=== PATIENT | male | born 1950 | race Caucasian/White ===

== ENCOUNTER 2019-09-19 10:51 | Emergency (ER) | payer MEDICARE, SELFPAY ==
[2019-09-19] VITALS (9 sets, daily range): BP systolic 118–146; BP diastolic 60–82; PULSE 59–79; RESP 12–23; TEMP 35.9; O2SAT 96–100
--- NOTE | ~2019-09-19 | CT_ITS ---
EXAMINATION: CT brain wo con DATE: 09/19/2019 11:40 INDICATION: Headache and altered mental status TECHNIQUE: Computed tomography (CT) of the head was performed without intravenous contrast. Sagittal and coronal reconstructions were performed. The mA was adjusted according to patient size. Iterative reconstruction technique was employed. The dose-length product was 605.33 mGy-cm. COMPARISON: None FINDINGS: There are multiple scattered small intra-axial masses throughout the brain with surrounding regions o f vasogenic edema in the white matter scattered throughout the bilateral cerebral and cerebellar esteban spheres. The largest lesion is likely in the right cerebellar hemisphere however the margins are diff icult to differentiate from the surrounding parenchyma. This does result in significant local mass ef fect with distortion leftward deviation of the fourth ventricle. There is relative dilation of the la teral and third ventricles when compared with the sulci suggesting developing obstructing hydrocephal us. The largest clearly defined lesion measures approximately 1.7 cm in the left frontal lobe with ce ntral low-attenuation suggesting cavitation/central necrosis. There are small calcifications associat ed with a few of the lesions. There is an additional 11 mm lesion in the anterior left frontal lobe w hich projects into the lumen of the anterior horn of the left lateral ventricle. No evident intracran ial hemorrhage or acute infarction. The bilateral orbits are normal. Mucus versus mucous retention cy st in the posterior right sphenoid sinus. Mastoid air cells and middle ear cavities are clear. Intrac ranial calcified cerebral atherosclerosis is noted. IMPRESSION: 1. Multiple scattered brain lesions with surrounding vasogenic edema concerning for metastatic diseas e. There is mass effect from a lesion in the right cerebellar hemisphere which compresses the fourth ventricle with resultant dilation of the lateral and third ventricles when compared with the sulci de jesus ggesting secondary hydrocephalus. Dr. Beltran discussed these findings with Dr. Paredes at 11:42 AM. Recommend urgent neurosurgical consultation and when clinically appropriate would recommend further evaluation with pre and postcontrast MRI. Reviewed, dictated and finalized at location A. IMPRESSION: 1. Multiple scattered brain lesions with surrounding vasogenic edema concerning for metastatic disease. There is mass effect from a lesion in the right cerebe llar hemisphere which compresses the fourth ventricle with resultant dilation o f the lateral and third ventricles when compared with the sulci suggesting seco ndary hydrocephalus. Dr. Beltran discussed these findings with Dr. Paredes at 11:42 AM. Recommend urgent neurosurgical consultation and when clinically appro priate would recommend further evaluation with pre and postcontrast MRI.
--- NOTE | ~2019-09-19 | XR_ITS ---
EXAMINATION: XR chest 1V DATE: 09/19/2019 11:41 INDICATION: Cough TECHNIQUE: frontal view of the chest was obtained. COMPARISON: None FINDINGS: 4.3 cm mass in the lateral left midlung zone as well as enlargement of the left hilum suggestive of p rimary bronchogenic carcinoma with hilar metastatic lymphadenopathy. Symmetric small nodular opacitie s projecting along the inferior margin of the bilateral anterior sixth ribs most likely represent nip ple shadows. No other airspace opacities, pulmonary edema, pleural effusion or pneumothorax.. Heart s ize is normal. Anterior spinal fusion procedure in the mid to lower cervical spine with a pair of ant erior plate and screw fixations. IMPRESSION: 1. 4.3 cm mass in the left lung with enlargement of the left hilum concerning for primary bronchogeni c carcinoma with hilar metastatic lymphadenopathy. Given the evidence of likely metastatic disease in the brain would recommend further evaluation with postcontrast CT of the chest, abdomen and pelvis w hen clinically appropriate. Reviewed, dictated and finalized at location A. IMPRESSION: 1. 4.3 cm mass in the left lung with enlargement of the left hilum concerning f or primary bronchogenic carcinoma with hilar metastatic lymphadenopathy. Given the evidence of likely metastatic disease in the brain would recommend further evaluation with postcontrast CT of the chest, abdomen and pelvis when clinicall y appropriate.
--- NOTE | 2019-09-19 11:07 | ECG_ITS ---
Measurements Intervals Harper Rate: 70 P: 73 CT: 145 QRS: 62 QRSD: 101 T: 64 QT: 375 QTc: 407 Interpretive Statements SINUS RHYTHM NORMAL ECG Electronically Signed On 09-19-2019 19:32:02 CDT by Ede August D.O.
--- NOTE | 2019-09-19 11:34 | ED.GENADULT ---
HPI - General Adult General Chief complaint: Headache Stated complaint: HEADACHE Time Seen by Provider: 09/19/19 11:05 History of Present Illness HPI narrative: Patient is a 61-year-old male who presents the ER with several issues. Main issue is confusion ongoing for last week. He has trouble to start some finding some of his words. He currently thinks it is November 2019. He called his sister yesterday to talk about an urgent care visit he had gone to. Cannot verbalize what kind of doctor had been to and it took a while to get through the details. Additionally his handwriting is changed from being small and neat to being much larger and shaky. Sister is concerned about his fine motor movements. Patient has been having some instability with walking as well. Also patient reports she has been having posterior headache that has become more throbbing globally. All this is been ongoing for the last 7 to 10 days. No trauma that he reports. No weight loss. Patient was treated for hepatitis C 6 months ago. He quit drinking alcohol when the symptoms started. Prior to this he been drinking 1 pint a day. Related Data Allergies Allergy/AdvReac Type Severity Reaction Status Date / Time No Known Allergies Allergy Unverified 09/19/19 11:06 Review of Systems Review of Systems: ROS unobtainable: Yes unobtainable due to mental status PMFSH Past Medical History Medical History (Updated 09/19/19 @ 14:49 by Evert Paredes MD) Hepatitis C HLD (hyperlipidemia) Hypertension Surgical History Surgical History (Updated 09/19/19 @ 11:36 by Evert Paredes MD) No pertinent past surgical history Social History Social History Smoking status: Heavy tobacco smoker Alcohol intake: current Gender identity (if verbalized by the patient): Male Exam Narrative: Exam Narrative: GENERAL: Well-appearing, well-nourished, and in no acute distress. HEAD: Normocephalic, atraumatic. EYES: PERRL and EOMI. ENT: Mucous membranes moist. CHEST: Rhonchi that clears with coughing. No respiratory distress. HEART: Regular rate and rhythm. Normal peripheral pulses. ABDOMEN: Soft, nontender, nondistended. EXTREMITIES: Normal range of motion. No edema. NEURO: Cranial nerves II through XII intact. No upper or lower extremity drift. Patient is little shaky when performing [id number] testing and when performing rapid alternating movements of the upper extremities. Alert and oriented x2-3. PSYCH: Normal mood and affect. Course Course Emergency Course: I have discussed case with neurosurgery at [facility] as well as GI and the medicine service. Dr. Cartagena with medicine service will accept the patient. Neurosurgery recommended 10 mg of Decadron x1 and then 4 mg of Decadron every 6 hours. Patient also received one-time dose of Keppra. Patient family aware of diagnosis and treatment plan. No additional questions at this time. Vital Signs Vital signs: Vital Signs Temperature 96.7 F L 09/19/19 10:58 Pulse Rate 73 09/19/19 10:58 Respiratory Rate 20 09/19/19 10:58 Blood Pressure 136/60 09/19/19 10:58 Pulse Oximetry 96 09/19/19 10:58 Temperature 96.7 F L 09/19/19 10:58 Pulse Rate 59 L 09/19/19 14:01 Respiratory Rate 13 09/19/19 14:01 Blood Pressure 118/72 09/19/19 14:01 Pulse Oximetry 96 09/19/19 13:46 Medical Decision Making Vital Signs Vital Signs: Vital Signs Temperature 96.7 F L 09/19/19 10:58 Pulse Rate 73 09/19/19 10:58 Respiratory Rate 20 09/19/19 10:58 Blood Pressure 136/60 09/19/19 10:58 Pulse Oximetry 96 09/19/19 10:58 Temperature 96.7 F L 09/19/19 10:58 Pulse Rate 59 L 09/19/19 14:01 Respiratory Rate 13 09/19/19 14:01 Blood Pressure 118/72 09/19/19 14:01 Pulse Oximetry 96 09/19/19 13:46 Lab Data Result diagrams: 09/19/19 12:20 09/19/19 12:20 Labs: Lab Results
--- NOTE | 2019-09-19 12:09 | PC.NURSE ---
Pt unable to urinate at this time
[2019-09-19 12:39] LABS: Basophils Percent Auto 0.5 % (0.2-1.2); Eosinophils Absolute Auto 0.1 K/mm3 (0-0.3); Eosinophils Percent Auto 1.6 % (0-4.4); Hematocrit 44.1 % (42.0-52.0); Hemoglobin 15.6 g/dL (14.0-18.0); Immature Granulocyte Absolute 0.02 K/mm3 (0.00-0.031); Immature Granulocyte Percent A 0.2 % (0-0.5); Mean Corpuscular HGB Conc 35.4 g/dl (32-36); Mean Corpuscular Hemoglobin 33.8 pg (26-34); Mean Corpuscular Volume 95.7 fl (80-100); Mean Platelet Volume 12.6 fl (7.4-10.4); Monocytes Absolute Auto 0.5 K/mm3 (0.1-0.6); Neutrophils Absolute Auto 6.1 K/mm3 (1.3-6.7); Neutrophils Percent Auto 76.7 % (45.5-73.1); Platelet Count Result 157 k/mm3 (150-375); Red Blood Count 4.61 M/mm3 (4.6-6.20); Red Cell Distribution Width 11.7 % (11.5-14.5)
[2019-09-19 12:52] LABS: Partial Thromboplastin Time 28.2 SECONDS (22.3-36.8)
[2019-09-19 12:53] LABS: Alanine Aminotransferase 42 U/L (4-50); Albumin Level 4.7 g/dL (3.5-5.1); Alkaline Phosphatase 106 U/L (38-126); Anion Gap 10 mmol/L (8-16); Aspartate Amino Transferase 40 U/L (17-59); Bilirubin,Total 0.5 mg/dL (0.2-1.3); Blood Urea Nitrogen 16 mg/dL (9-20); Calcium 9.4 mg/dL (8.4-10.2); Carbon Dioxide 27 mmol/L (22-30); Chloride 101 mmol/L (98-107); Estimated CRCL calculation 64 ml/min; Estimated Glomerular Filt Rate > 60; Glucose 110 mg/dL (75-110); Potassium 3.8 mmol/L (3.4-5.0); Sodium 138 mmol/L (137-145)
[2019-09-19 12:57] LABS: Prothrombin Time 13.2 Seconds (11.1-14.7)
[2019-09-19] MEDS: levETIRAcetam 1000MG/NACL100ML 1,000 MG/100 ML BAG 400 MG IVPB (13:23)
--- NOTE | 2019-09-19 14:09 | PC.NURSE ---
PT STATES THAT HE IS UNABLE TO GIVE URINE SAMPLE AT THIS TIME. RN NOTIFIED.
--- NOTE | 2019-09-19 17:51 | PC.NURSE ---
Estimated ETA 183
== END 2019-09-19 18:12 | disposition short-term general hospital (02) ==
PROVIDERS: Emergency Provider Emergency Medicine; PCP Emergency Medicine
DX: C79.31 Secondary malignant neoplasm of brain (principal); R91.8 Other nonspecific abnormal finding of lung field; G91.9 Hydrocephalus, unspecified; Z86.19 Personal history of other infectious and parasitic diseases; E78.5 Hyperlipidemia, unspecified; I10 Essential (primary) hypertension; F17.200 Nicotine dependence, unspecified, uncomplicated
CPT/HCPCS: 36415; 70450; 71045; 80053; 85025; 85610; 85730; 93005; 96365; 96375; 99285; J1100; J1953